=== PATIENT | male | born 1990 | race Hispanic/Latino ===

== ENCOUNTER 2019-04-14 12:01 | Emergency (ER) | payer BC ==
[2019-04-14 12:07] VITALS: BP 128/84
[2019-04-14] MEDS ORDERED: KETOROLAC 30 MG/1 ML INJ IV ONE (12:39)
[2019-04-14] MEDS ORDERED: FAMOTIDINE 20 MG/2 ML INJ IV ONE (12:39)
--- NOTE | 2019-04-14 12:44 | Emergency Department Report ---
Chief Complaint: Abdominal Pain Stated Complaint: ABDOMINAL PAIN - HPI History of Present Illness: 29yo WM states that he has had intermittent RLQ pain with diarrhea x 2 days. - Exam Vital Signs: Vital Signs 04/14/19 12:06 Temperature 98.4 F Pulse Rate 89 Respiratory 16 Rate Blood Pressure 128/84 O2 Sat by Pulse 97 Oximetry MSE screening note: Focused history and physical exam performed. Due to findings the following was ordered: ED Disposition for MSE Condition: Stable
[2019-04-14 13:01] LABS: Basophils % (Auto) 0.4 % (0.0-1.8); Eosinophils # (Auto) 0.2 K/mm3 (0.0-0.4); Eosinophils % (Auto) 1.6 % (0.0-4.3); Hematocrit 50.2 % (35.5-45.6); Hemoglobin 16.9 gm/dl (11.8-15.2); Lymphocytes # (Auto) 1.7 K/mm3 (1.2-5.4); Lymphocytes % (Auto) 16.7 % (13.4-35.0); Mean Corpuscular HGB Conc 34 % (32-34); Mean Corpuscular Volume 86 fl (84-94); Monocytes % (Auto) 9.4 % (0.0-7.3); Platelet Count 323 K/mm3 (140-440); Red Blood Count 5.86 M/mm3 (3.65-5.03); Red Cell Distribution Width 13.5 % (13.2-15.2)
[2019-04-14] MEDS ORDERED: SODIUM CHLORIDE 0.9% 1000 ML 1,000 ML IV ONE (13:03)
--- NOTE | 2019-04-14 13:03 | Emergency Department Report ---
ED Abdominal Pain HPI - General Chief Complaint: Abdominal Pain Stated Complaint: ABDOMINAL PAIN Time Seen by Provider: 04/14/19 12:37 Source: patient Mode of arrival: Ambulatory Limitations: No Limitations - History of Present Illness Severity scale (0 -10): 8 - Related Data Allergies Allergy/AdvReac Type Severity Reaction Status Date / Time No Known Allergies Allergy Unverified 04/14/19 12:04 ED Review of Systems ROS: Stated complaint: ABDOMINAL PAIN Other details as noted in HPI ED Past Medical Hx - Surgical History Past Surgical History?: No - Social History Smoking Status: Never Smoker Substance Use Type: None ED Physical Exam - General Limitations: No Limitations ED Course Vital Signs 04/14/19 12:06 Temperature 98.4 F Pulse Rate 89 Respiratory 16 Rate Blood Pressure 128/84 O2 Sat by Pulse 97 Oximetry ED Medical Decision Making - Lab Data Result diagrams: 04/14/19 12:42 Critical care attestation.: If time is entered above; I have spent that time in minutes in the direct care of this critically ill patient, excluding procedure time. ED Disposition Condition: Stable
[2019-04-14 13:27] LABS: Alanine Aminotransferase 19 units/L (7-56); Albumin 4.5 g/dL (3.9-5); BUN/Creatinine Ratio 14; Blood Urea Nitrogen 10 mg/dL (9-20); Calcium 9.6 mg/dL (8.4-10.2); Hemolysis Index 13
[2019-04-14 13:36] LABS: Bilirubin,Urine NEG (Negative); Blood,Urine NEG (Negative); Color,Urine Yellow (Yellow); Mucus,Urine 3+ /HPF; Urobilinogen,Urine < 2.0 mg/dL (<2.0)
--- NOTE | 2019-04-14 15:01 | Cat Scan Report ---
CT abdomen pelvis w con INDICATION: R sided abd pain. TECHNIQUE: All CT scans at this location are performed using the following dose modulation technique: Automated exposure control. CONTRAST: Omnipaque 300, 100 cc IV injection. COMPARISON: None available. CT abdomen: Evaluation of the parenchymal organs demonstrates at least 3 subcentimeter low-density he patic lesions which are too small to characterize. The remaining parenchymal organs are unremarkable. Negative for abdominal fluid collection. Localized thickening involves the ascending colon. There are small adjacent nodes and mild adjacent i nflammation. The appendix is normal. Negative for bowel obstruction. CT PELVIS: Negative for mass, fluid or inflammation. IMPRESSION: 1. Localized colitis at the ascending colon. 2. Liver lesions are too small to characterize but likely incidental. 3. Pericolonic lymph nodes are likely reactive. Signer Name: Omar Silva MD Signed: 04/14/2019 2:56 PM Workstation Name: [id number]
--- NOTE | 2019-04-14 16:05 | Emergency Department Report ---
ED Abdominal Pain HPI - General Chief Complaint: Abdominal Pain Stated Complaint: ABDOMINAL PAIN Time Seen by Provider: 04/14/19 12:37 Source: patient Mode of arrival: Ambulatory Limitations: No Limitations - History of Present Illness Initial Comments: Patient is a 29-year-old male with no smoking past medical history who is presenting with 2 days of right-sided abdominal pain with diarrhea. Has mild nausea but no vomiting. Patient states the diarrhea is watery and nonbloody. Patient's having some right lower quadrant discomfort. Patient's states he went to urgent care and they sent him in to evaluate her for possible appendicitis. Severity scale (0 -10): 0 - Related Data Previous Rx's Medication Instructions Recorded Last Taken Type Ciprofloxacin HCl [Ciprofloxacin 500 mg PO Q12HR #14 tab 04/14/19 Unknown Rx TAB] Dicyclomine [Bentyl] 20 mg PO QID #10 tablet 04/14/19 Unknown Rx metroNIDAZOLE [Flagyl] 500 mg PO Q12HR #14 tab 04/14/19 Unknown Rx traMADol [Ultram] 50 mg PO Q6HR PRN #12 tablet 04/14/19 Unknown Rx Allergies Allergy/AdvReac Type Severity Reaction Status Date / Time No Known Allergies Allergy Unverified 04/14/19 12:04 ED Review of Systems ROS: Stated complaint: ABDOMINAL PAIN Other details as noted in HPI Comment: All other systems reviewed and negative ED Past Medical Hx - Surgical History Past Surgical History?: No - Social History Smoking Status: Never Smoker Substance Use Type: None - Medications Home Medications: Home Medications Medication Instructions Recorded Confirmed Last Taken Type Ciprofloxacin HCl [Ciprofloxacin 500 mg PO Q12HR #14 tab 04/14/19 Unknown Rx TAB] Dicyclomine [Bentyl] 20 mg PO QID #10 tablet 04/14/19 Unknown Rx metroNIDAZOLE [Flagyl] 500 mg PO Q12HR #14 tab 04/14/19 Unknown Rx traMADol [Ultram] 50 mg PO Q6HR PRN #12 tablet 04/14/19 Unknown Rx ED Physical Exam - General Limitations: No Limitations General appearance: alert, in no apparent distress - Head Head exam: Present: atraumatic, normocephalic - Eye Eye exam: Present: normal appearance - ENT ENT exam: Present: mucous membranes moist - Neck Neck exam: Present: normal inspection - Respiratory Respiratory exam: Present: normal lung sounds bilaterally. Absent: respiratory distress, wheezes, rales, rhonchi - Cardiovascular Cardiovascular Exam: Present: regular rate, normal rhythm. Absent: systolic murmur, diastolic murmur, rubs, gallop - GI/Abdominal GI/Abdominal exam: Present: soft, tenderness (right upper and lower quadrant tenderness without rebound), normal bowel sounds. Absent: distended, guarding, rebound, rigid - Rectal Rectal exam: Present: deferred - Extremities Exam Extremities exam: Present: normal inspection - Back Exam Back exam: Present: normal inspection - Neurological Exam Neurological exam: Present: alert, oriented X3 - Psychiatric Psychiatric exam: Present: normal affect, normal mood - Skin Skin exam: Present: warm, dry, intact, normal color. Absent: rash ED Course Vital Signs 04/14/19 04/14/19 12:06 13:02 Temperature 98.4 F Pulse Rate 89 Respiratory 16 14 Rate Blood Pressure 128/84 O2 Sat by Pulse 97 Oximetry ED Medical Decision Making - Lab Data Result diagrams: 04/14/19 12:42 04/14/19 12:42 - Radiology Data CT abdomen pelvis w con INDICATION: R sided abd pain. TECHNIQUE: All CT scans at this location are performed using the following dose modulation technique: Automated exposure control. CONTRAST: Omnipaque 300, 100 cc IV injection. COMPARISON: None available. CT abdomen: Evaluation of the parenchymal organs demonstrates at least 3 subcentimeter low-density hepatic lesions which are too small to characterize. The remaining parenchymal organs are unremarkable. Negative for abdominal fluid collection. Localized thickening involves the ascending colon. There are small adjacent nodes and mild adjacent inflammation. The appendix is normal. Negative for bowel obstruction. CT PELVIS: Negative for mass, fluid or inflammation. IMPRESSION: 1. Localized colitis at the ascending colon. 2. Liver lesions are too small to characterize but likely incidental. 3. Pericolonic lymph nodes are likely reactive. Signer Name: Omar Silva MD Signed: 04/14/2019 2:56 PM Workstation Name: [id number] Transcribed By: ES Dictated By: Omar Silva MD Electronically Authenticated By: Omar Silva MD Signed Date/Time: 04/14/19 1456 - Medical Decision Making Patient is a 29-year-old male who is presenting with right sided abdominal discomfort. CT is consistent with ascending colitis. Patient be started on Cipro Flagyl and medications symptomatic relief be discharged home. Critical care attestation.: If time is entered above; I have spent that time in minutes in the direct care of this critically ill patient, excluding procedure time. ED Disposition Clinical Impression: Colitis Disposition: DC-01 TO HOME OR SELFCARE Is pt being admited?: No Does the pt Need Aspirin: No Condition: Stable Instructions: Infectious Colitis (ED) Referrals: PRIMARY CARE, [Primary Care Provider] - 3-5 Days Time of Disposition: 16:09
== END 2019-04-14 16:21 | disposition home or self-care (01) ==
LOC: ED 12:01
DX: K52.9 Noninfective gastroenteritis and colitis, unspecified (principal)
CPT/HCPCS: 36415; 74177; 80053; 81001; 85025; 96361; 96374; 96375; 99284; J1885; J7030; Q9967